=== PATIENT | female | born 1995 | race Caucasian/White ===

== ENCOUNTER 2025-05-31 20:24 | Emergency (ER) | payer OTHER ==
[2025-05-31 20:29] VITALS: TEMP 99.4
[2025-05-31] MEDS ORDERED: MAALOX ES 30 ML UNIT DOSE ONE (20:35)
[2025-05-31] MEDS ORDERED: XYLOCAINE VISCOUS 2% 15 ML CUP ONE (20:35)
[2025-05-31] MEDS ORDERED: VERSED 5 MG/5 ML ONE ×2 (20:35→21:14)
[2025-05-31] MEDS: VERSED 5 MG/5 ML IV ONE ×2 (20:36→21:16)
[2025-05-31] MEDS: GI COCKTAIL 45 ML (Maalox/Lidocaine) PO ONE (20:36)
--- NOTE | 2025-05-31 20:46 | ERPHSYRPT ---
- History of Present Illness Patient Subjective Stated Complaint: . Triage Nursing Assessment: . Physician History: Possible food aspiration, the patient states she choked on some food and it feels like something is stuck, This is never previously happened in the past, she states she has difficulty breathing, She has a longstanding history of anxiety Timing/Duration: today Abdominal Pain Onset Location: other (neck and upper chest) Severity of Pain-Max: moderate Severity of Pain-Current: moderate Associated Symptoms: shortness of breath Previous symptoms: no prior history Allergies/Adverse Reactions: No Known Drug Allergies Allergy (Verified 05/31/25 20:26) Home Medications: Non-Formulary Drug [Non-Formulary Item] 300 mg PO DAILY 05/31/25 [History] Hx Tetanus, Diphtheria Vaccination/Date Given: Yes Hx Influenza Vaccination/Date Given: Yes Hx Pneumococcal Vaccination/Date Given: No Immunizations Up to Date: Yes Travel Risk - International Travel Have you traveled outside of the country in past 3 weeks: No - Emerging Infectious Disease Are you exhibiting symptoms associated with any current EIDs: No - Past Medical History Pertinent Past Medical History: Yes Neurological History: No Pertinent History ENT History: No Pertinent History Cardiac History: No Pertinent History Respiratory History: No Pertinent History Endocrine Medical History: No Pertinent History Musculoskeletal History: No Pertinent History GI Medical History: No Pertinent History History: No Pertinent History Psycho-Social History: Anxiety Female Reproductive Disorders: No Pertinent History - Past Surgical History Past Surgical History: Yes Neuro Surgical History: No Pertinent History Cardiac: No Pertinent History Respiratory: No Pertinent History Gastrointestinal: No Pertinent History Genitourinary: No Pertinent History Musculoskeletal: No Pertinent History Female Surgical History: No Pertinent History - Female History Hx Last Menstrual Period: 12/25/2023 Hx Now: No - Social History Smoking Status: Never smoker Exposure to second hand smoke: No Drug Use: none - Social Determinants of Health Will the patient participate in the screening: Yes Do you worry about a steady place to live?: No Do you have any problems with any of the following?: No known problems In the past 12 months,have you had to go without utilities?: No Transportation Issues: No Has anyone in your support network made you feel unsafe?: No Have you or anyone in your house had to go w/o enough food: No - Nursing Vital Signs Nursing Vital Signs: Initial Vital Signs Temperature 99.4 F 05/31/25 20:26 Pulse Rate 103 H 05/31/25 20:26 Respiratory Rate 28 H 05/31/25 20:26 Blood Pressure 169/85 05/31/25 20:26 O2 Sat by Pulse Oximetry 98 05/31/25 20:26 Pain Scale Pain Intensity 0 - Physical Exam General Appearance: no apparent distress, alert, anxiety Eye Exam: PERRL/EOMI, eyes nml inspection Ears, Nose, Throat Exam: normal ENT inspection, pharynx normal, moist mucous membranes Neck Exam: normal inspection, non-tender, supple, full range of motion Respiratory Exam: normal breath sounds, lungs clear, No respiratory distress Cardiovascular Exam: regular rate/rhythm, normal heart sounds Gastrointestinal/Abdomen Exam: soft, No tenderness, No mass Back Exam: normal inspection, normal range of motion, No CVA tenderness, No vertebral tenderness Extremity Exam: normal inspection, normal range of motion, pelvis stable Neurologic Exam: alert, oriented x 3, cooperative, normal mood/affect, nml cerebellar function, sensation nml, No motor deficits Skin Exam: normal color, warm, dry SpO2 Interpretation: normal SpO2: 98 Ordered Tests: Active Orders 24 hr Category Date Time Status IV Insertion STAT Care 05/31/25 20:27 Active CHEST 1 VIEW (PORTABLE) Stat Exams 05/31/25 22:39 Taken NECK WITH CONTRAST [CT] Stat Exams 06/01/25 01:09 Ordered BMP Stat Lab 06/01/25 00:01 Completed CBC W DIFF Stat Lab 06/01/25 00:17 Completed HCG QUALITATIVE, SERUM Stat Lab 06/01/25 00:01 Completed Medication Summary Discontinued Medications Generic Name Dose Route Start Last Admin Trade Name Rory PRN Reason Stop Dose Admin Al Hydrox/Mg Hydrox/Simethicone Confirm 05/31/25 20:35 Mag Hydrox/Al Hydrox/Simeth 30 Ml Udcup Administered 05/31/25 20:36 Dose 30 ml .ROUTE .STK-MED ONE Dexamethasone Sodium Phosphate 10 mg 06/01/25 00:38 06/01/25 00:46 Dexamethasone Sod Phosphate 10 Mg/Ml IV 06/01/25 00:39 10 mg STAT ONE Administration Dexamethasone Sodium Phosphate Confirm 06/01/25 00:45 Dexamethasone Sod Phosphate 10 Mg/Ml Administered 06/01/25 00:46 Dose 10 mg .ROUTE .STK-MED ONE Epinephrine 0.5 ml 06/01/25 00:39 Racepinephrine Inh Marylin 0.5 Ml Neb IH 06/01/25 00:40 STAT ONE Epinephrine Confirm 06/01/25 00:45 Racepinephrine Inh Marylin 0.5 Ml Neb Administered 06/01/25 00:46 Dose 0.5 ml IH .STK-MED ONE Lidocaine HCl Confirm 05/31/25 20:35 Lidocaine Hcl 2% Viscous 15 Ml Udcup Administered 05/31/25 20:36 Dose 15 ml .ROUTE .STK-MED ONE Magnesium Hydroxide 45 ml 05/31/25 20:30 05/31/25 20:36 Mag Hydrx/Alum Hyd/Simeth/Lido 45 Ml Bottle PO 05/31/25 20:31 45 ml STAT ONE Administration Midazolam HCl 2 mg 05/31/25 20:29 05/31/25 20:53 Midazolam Hcl 2 Mg/2 Ml Vial IV 05/31/25 20:30 Not Given 1XONLY ONE Midazolam HCl Confirm 05/31/25 20:35 Midazolam Hcl 5 Mg/5 Ml Vial Administered 05/31/25 20:36 Dose 5 mg .ROUTE .STK-MED ONE Midazolam HCl 2 mg 05/31/25 20:29 05/31/25 20:36 Midazolam Hcl 5 Mg/5 Ml Vial IV 05/31/25 20:30 2 mg STAT ONE Administration Midazolam HCl 2 mg 05/31/25 21:05 05/31/25 21:16 Midazolam Hcl 5 Mg/5 Ml Vial IV 05/31/25 21:06 2 mg STAT ONE Administration Midazolam HCl Confirm 05/31/25 21:14 Midazolam Hcl 5 Mg/5 Ml Vial Administered 05/31/25 21:15 Dose 5 mg .ROUTE .STK-MED ONE Lab/Rad Data: Laboratory Result Diagrams 06/01/25 00:17 06/01/25 00:01 Laboratory Results 06/01/25 06/01/25 06/01/25 Range/Units 00:17 00:01 00:01 WBC 6.5 (3.98-10.04) x10^3/uL RBC 3.94 (3.93-5.22) x10^6/uL Hgb 12.6 (11.2-15.7) g/dL Hct 37.2 (34.1-44.9) % MCV 94.4 (79.4-94.8) fL MCH 32.0 (25.6-32.2) pg MCHC 33.9 (32.2-35.5) g/dL RDW 11.9 (11.7-14.4) % Plt Count 294 (182-369) x10^3/uL MPV 10.5 (9.4-12.3) fL Gran % 40.3 (34.0-71.1) % Immature Gran % (Auto) 0.2 (0.001-0.429) % Nucleat RBC Rel Count 0.0 (0.00-0.2) % Eos # (Auto) 0.15 (0.04-0.36) x10^3/uL Immature Gran # (Auto) 0.01 (0.001-0.031) x10^3u/L Absolute Lymphs (auto) 3.05 (1.18-3.74) x10^3/uL Absolute Monos (auto) 0.63 (0.24-0.86) x10^3/uL Absolute Nucleated RBC 0.00 (0.00-0.012) x10^3u/L Lymphocytes % 47.0 (19.3-51.7) % Monocytes % 9.7 (4.7-12.5) % Eosinophils % 2.3 (0.7-5.8) % Basophils % 0.5 (0.1-1.2) % Absolute Granulocytes 2.62 (1.56-6.13) x10^3/uL Basophils # 0.03 (0.01-0.08) x10^3/uL Sodium 138 (135-145) mmol/L Potassium 3.6 (3.5-5.1) mmol/L Chloride 104 (98-107) mmol/L Carbon Dioxide 24 (22-30) mmol/L Anion Gap 13.9 (5-15) MEQ/L BUN 15 (7-17) mg/dL Creatinine 0.81 (0.52-1.04) mg/dL Estimated GFR 101.3 ML/MIN Glucose 74 (74-106) mg/dL Calcium 9.6 (8.4-10.2) mg/dL Serum HCG, Qual NEGATIVE (NEGATIVE) - Progress Progress Note: 05/31/25 21:04 Reevaluation, patient states that she cannot swallow her saliva but she is not spitting up any saliva, When I initially walked in the room her respirations were fast but as I still do her longer and talk with her her respirations increased, will repeat Versed 05/31/25 22:40 Symptoms persist, patient has some stridor when entering the room and she begins to hyperventilate, Consult to GI/general surgery for emergent endoscopy 05/31/25 23:49 patient requested transfer to [facility], waiting to hear back 06/01/25 00:15 Surgery not available at [facility], consulted Gen Surgery at [place]( in OR now) and he will scope patient after the case he is doing 06/01/25 00:39 Persistent stridor, on further history the patient states that she is had some of her symptoms earlier in the week but it was much worse this evening after eating food and she felt like she either aspirated or that there was something stuck; she never had significant coughing, she was never SOB; will add Decadron and Aerosolized Epi; will consult EN&T 06/01/25 00:59 discussed with EN&T at [facility] (recommends transfer to them(Dr Garcia)) 06/01/25 01:12 Discussed with food or baggage handling rampman and [place](Dr. Rivas), he requested obtaining a CT scan of the neck - Departure Departure Disposition: Release to OR/[facility] Clinical Impression: Stridor Condition: Stable Critical Care Time: No Referrals: GIANNA HERRERA [ACTIVE STAFF, [facility]] - Follow up/PCP as directed
[2025-05-31] MEDS: Versed 2 MG/2 ML Injection IV ONE (20:53)
[2025-06-01 00:27] LABS: HCG SERUM TEST NEGATIVE (NEGATIVE)
[2025-06-01 00:27] LABS: BASOPHIL % 0.5 % (0.1-1.2); Basophil (Absolute #) 0.03 x10^3/uL (0.01-0.08); Eosinophil (Absolute #) 0.15 x10^3/uL (0.04-0.36); Hematocrit 37.2 % (34.1-44.9); Hemoglobin 12.6 g/dL (11.2-15.7); IMMATURE GRAN # 0.01 x10^3u/L (0.001-0.031); IMMATURE GRAN % 0.2 % (0.001-0.429); Lymphocyte (Absolute #) 3.05 x10^3/uL (1.18-3.74); Mean Corpuscular Hemoglobin 32.0 pg (25.6-32.2); Mean Corpuscular Hgb Concent. 33.9 g/dL (32.2-35.5); Monocyte (Absolute #) 0.63 x10^3/uL (0.24-0.86); NUCLEATED RBC # 0.00 x10^3u/L (0.00-0.012); NUCLEATED RBC % 0.0 % (0.00-0.2); Platelet Count 294 x10^3/uL (182-369); Red Blood Count 3.94 x10^6/uL (3.93-5.22); White Blood Count 6.5 x10^3/uL (3.98-10.04)
[2025-06-01 00:29] LABS: Calcium 9.6 mg/dL (8.4-10.2); Carbon Dioxide 24.0 mmol/L (22-30); Creatinine 1 0.81 mg/dL (0.52-1.04); EST GLOMERULAR FILTRATION RATE 101.3 ML/MIN; Glucose 74.0 mg/dL (74-106); Potassium 3.6 mmol/L (3.5-5.1)
[2025-06-01] MEDS ORDERED: Racepinephrine INH Solution 2.25% IH ONE (00:45)
[2025-06-01] MEDS ORDERED: DECADRON 10MG INJ. ONE (00:45)
[2025-06-01] MEDS: DECADRON 10MG INJ. IV ONE (00:46)
[2025-06-01] MEDS: Racepinephrine INH Solution 2.25% IH ONE (01:21)
--- NOTE | 2025-06-01 02:19 | XRAY ---
CLINICAL HISTORY: stridor COMPARISON: None. TECHNIQUE: CT scan of the neck was performed with administration of intravenous contrast. Sagittal and coronal reconstructions were obtained. One of the following dose reduction techniques was utilized for this exam: automated exposure control, adjustment of the mA and/or kV according to patient size, and use of iterative reconstruction. FINDINGS: Nasopharynx: Normal size and appearance. No masses or abnormal enhancement. Oropharynx: Normal size and appearance. No masses or abnormal enhancement. Larynx and Hypopharynx: Normal appearance of the laryngeal structures. The vocal cords are normal in appearance and movement. No masses or abnormal enhancement. Thyroid Gland: Normal size and morphology. No nodules or masses. Normal enhancement post-contrast. Salivary Glands: The parotid, submandibular, and sublingual glands are normal in size and appearance. No evidence of sialadenitis or masses. Lymph Nodes: No pathologically enlarged cervical lymph nodes. Normal appearance of the lymph node chains. Vascular Structures: Normal enhancement of the carotid arteries, jugular veins, and other major vessels post-contrast. No evidence of vascular malformations, aneurysms, or thrombosis. Soft Tissues: Normal appearance of the soft tissues of the neck. No abnormal masses, swelling, or fluid collections. Bones: Normal appearance of the cervical spine and surrounding bony structures. No fractures, lytic, or sclerotic lesions. Airway: The trachea and main bronchi are patent. No evidence of tracheal or bronchial stenosis or masses. Rightward deviation of the nasal septum. IMPRESSION: Normal CT of the soft tissue neck with contrast. Electronically Signed by: Shivam Wilson MD. (06/01/2025 02:17:23 EDT)
[2025-06-01 07:35] VITALS: BP 119/69; PULSE 84; RESP 21; O2SAT 98
--- NOTE | 2025-06-01 08:43 | XRAY ---
Indication: Short of breath. Comparison: None Portable chest demonstrates normal heart and lungs with incidental right midlung calcified granulomas. Bony thorax intact with minimal dextroscoliosis. No acute findings.
== END 2025-06-01 07:40 | disposition left against medical advice (07) ==
LOC: ED 20:24
DX: R06.1 Stridor (principal); R09.A2 Foreign body sensation, throat